=== PATIENT | female | born 1985 | race Caucasian/White ===

== ENCOUNTER 2020-05-02 22:29 | Emergency (ER) | payer OTHER ==
[~2020-05-02] VITALS: Ht 165.1 cm; Wt 47.6 kg
[~2020-05-02 22:29] MED LIST: CLEOCIN HCL150 MG PO; DOXYCYCLINE 10100 MG PO; HYDROCODON-ACE1 EAC8 PO; ULTRAM 50MG TAB50 MG PO
[2020-05-03 00:06] VITALS: BP 128/70
== END 2020-05-03 00:06 | disposition home or self-care (01) ==
LOC: M.ERS 22:29
DX: L02.211 Cutaneous abscess of abdominal wall (principal); F17.210 Nicotine dependence, cigarettes, uncomplicated; Z86.14 Personal history of Methicillin resistant Staphylococcus aureus infection; Z86.73 Personal history of transient ischemic attack (TIA), and cerebral infarction without residual deficits; Z87.442 Personal history of urinary calculi; Z88.0 Allergy status to penicillin

== ENCOUNTER 2020-08-25 21:02 | Emergency (ER) | payer OTHER ==
[~2020-08-25] VITALS: Ht 165.1 cm; Wt 49.9 kg
[2020-08-25] MEDS ORDERED: DOXYCYCLINE 10100 MG PO ×2 (21:29→21:48)
[2020-08-25 21:39] LABS: URINE BILIRUBIN NEGATIVE (Negative); URINE BLOOD TRACE (Negative); URINE CLARITY CLEAR; URINE COLOR YELLOW; URINE GLUCOSE-RANDOM NEGATIVE (Negative); URINE KETONES NEGATIVE (Negative); URINE LEUKOCYTES-REFLEX NEGATIVE (Negative); URINE NITRITE-REFLEX NEGATIVE (Negative); URINE PROTEIN NEGATIVE (Negative); URINE SPECIFIC GRAVITY 1.025 (1.005-1.030); URINE UROBILINOGEN 0.2 E.U./dl (0.2-1.0)
[2020-08-25 22:02] VITALS: BP 106/72
== END 2020-08-25 22:02 | disposition home or self-care (01) ==
LOC: M.ERS 21:02
PROVIDERS: Physician Assistant
DX: A54.9 Gonococcal infection, unspecified (principal); Z20.2 Contact with and (suspected) exposure to infections with a predominantly sexual mode of transmission; Z88.0 Allergy status to penicillin; Z90.49 Acquired absence of other specified parts of digestive tract; Z87.442 Personal history of urinary calculi; Z86.73 Personal history of transient ischemic attack (TIA), and cerebral infarction without residual deficits